=== PATIENT | male | born 2000 | race Two or more races ===

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

== ENCOUNTER 2024-01-06 16:55 | Emergency (ER) | payer OTHER ==
[~2024-01-06] VITALS: Ht 170.2 cm; Wt 52.2 kg
[2024-01-06] MEDS ORDERED: FAMOTIDINE/PF 20 MG/2 ML VIAL IV ONE (17:30)
[2024-01-06] MEDS ORDERED: 0.9 % SODIUM CHLORIDE 500 ML IV ONE (17:30)
[2024-01-06] MEDS ORDERED: FAMOTIDINE/PF 20 MG/2 ML VIAL ONE (17:36)
[2024-01-06 18:02] LABS: HEMATOCRIT 41.8 % (39.0-48.0); HEMOGLOBIN 14.1 g/dL (13-16.00); MEAN CELL VOLUME 82.6 fL (80.0-100.00); MEAN CORPUSCULAR HEMOGLOBIN 27.9 pg (27.00-32.0); MEAN CORPUSCULAR HGB CONC 33.8 g/dl (32.0-36.0); PLATELET COUNT 180 K/uL (150-450); RED BLOOD COUNT 5.06 M/uL (4.00-6.00); RED CELL DISTRIBUTION WIDTH 13.3 % (11.5-14.5)
[2024-01-06 18:15] LABS: INR 1.17; PARTIAL THROMBOPLASTIN TIME 29.6 SECONDS (22.0-34.0); PROTHROMBIN TIME 12.6 SECONDS (9.0-11.5)
[2024-01-06 18:21] LABS: ALBUMIN 4.2 gm/dL (3.4-5.0); BILIRUBIN TOTAL 0.98 mg/dL (0.3-1.2); CALCIUM 8.9 mg/dL (8.5-10.1); GFR 94.33; GLOBULINA 3.5 G/DL (2.4-3.5); POTASSIUM 3.38 mEq/L (3.5-5.1); TOTAL PROTEIN 7.7 gm/dL (6.4-8.2)
[2024-01-06 18:41] LABS: PH,URINE 7.5 (5.0-8.0); URINE APPEARANCE Clear; URINE BILIRRUBIN Negative (NEGATIVE); URINE BLOOD Negative; URINE COLOR Yellow; URINE GLUCOSE Negative (NEGATIVE); URINE KETONE Negative (NEGATIVE); URINE LEUKOCYTE Negative; URINE NITRATE Negative; URINE PROTEIN Negative (NEGATIVE); URINE UROBILINOGEN 0.2 E.U./dl
[2024-01-06 18:47] LABS: URINE BACTERIA 3.7 uL (0.0-1933); URINE WBC 0.1 uL (0.0-23.2)
[2024-01-06] MEDS ORDERED: METRONIDAZOLE500 MG PO (21:27)
[2024-01-06] MEDS ORDERED: INTESTINEX680 M1 PO (21:27)
[2024-01-06] MEDS ORDERED: CIPRO500 MG PO (21:27)
== END 2024-01-06 22:01 ==
LOC: ER 16:56
PROVIDERS: Nurse Practitioner Family
DX: K52.9 Noninfective gastroenteritis and colitis, unspecified (principal)